=== PATIENT | male | born 1990 | race Caucasian/White ===

== ENCOUNTER 2021-11-22 15:18 | Emergency (ER) | payer SELFPAY ==
[2021-11-22 17:19] LABS: HEMOGLOBIN 13.9 gm/dl (14.0-17.5); RED BLOOD COUNT 4.71 M/UL (4.20-5.50); WHITE BLOOD COUNT 14.2 K/UL (4.5-11.0)
[2021-11-22 17:48] LABS: BUN/CREATININE RATIO 11 (0-10)
== END 2021-11-23 01:40 | disposition home or self-care (01) ==
LOC: ER1 15:18
PROVIDERS: Physician Assistant
DX: F16.129 Hallucinogen abuse with intoxication, unspecified (principal); F22 Delusional disorders; Z20.822 Contact with and (suspected) exposure to COVID-19
CPT/HCPCS: 70450; 80053; 80307; 81001; 82150; 82550; 82553; 83605; 83690; 84484; 85025; 87040; 93005; 99285; G0480; U0002